=== PATIENT | male | born 1965 | race Caucasian/White ===

== ENCOUNTER → 2019-04-08 | Outpatient (CLI) | payer BC ==
[~2019-04-08] MED LIST: IOHEXOL 240 MG/ML 50ML VIAL. PO ONE; IOHEXOL 300 MG/ML 75 ML VIAL. IV ONE
--- NOTE | 2019-04-08 12:19 | RAD ---
Examination: CT ABD PELV W/ORAL IV CONTRAST History: Newly diagnosed prostate cancer Comparison/Correlation: 04/08/2019 total body bone scan Findings: Axial images of the abdomen and pelvis were obtained following IV and oral contrast administration. The left flank region could not be fully included due to patient body habitus. A small segment of the descending colon in particular was not included. Visualized lung bases are clear. Diffuse fatty infiltration of liver is present. Gallbladder fossa is unremarkable. Spleen has benign calcified granulomas. Adrenal glands are unremarkable. Pancreas is unremarkable. No enlarged abdominal or pelvic lymph nodes. No ascites or pelvic free fluid. Diverticulosis of the colon is present. No enlarged abdominal or pelvic lymph nodes. Urinary bladder is unremarkable. Prostate gland is small in size. Moderate L5/S1 disc space narrowing is present. Vertebral body heights are adequate. Few punctate sclerotic densities involving the left femoral head are present. These probably represent bone islands. Distal abdominal aortic fusiform aneurysm is present measuring up to 3.3 cm diameter. Length of 4.8 cm noted. Impression: Fatty infiltration of the liver. Distal abdominal aortic fusiform aneurysm. Diverticulosis. Punctate sclerotic densities involving left femoral head probably represent bone islands. No definite suspicious bony findings. PQRS Compliance Statement: One or more of the following individualized dose reduction techniques were utilized for this examination: 1. Automated exposure control 2. Adjustment of the mA and/or kV according to patient size 3. Use of iterative reconstruction technique Electronically signed by: El Levine MD (04/08/2019 12:16 PM) [facility]
--- NOTE | 2019-04-08 13:10 | RAD ---
Examination: BONE SCAN WHOLE BODY History: Newly diagnosed prostate cancer Comparison/Correlation: None Findings: 25 mm technetium 99m MDP was intravenously administered for purposes of total-body bone scintigraphy. Uptake of radiotracer involving the visualized head and neck is unremarkable. Uptake at the right acromioclavicular joint region on the posterior projection images is noted and may represent degenerative change. No corresponding suspicious finding at the frontal projection images. Kidneys and urinary bladder are identified. Uptake of radiotracer involving the ribs is unremarkable. Radiotracer overlying the medial thigh regions is noted presumably external to the patient. There are foci of ill-defined mild uptake of radiotracer involving the proximal mid tibial level bilaterally. Uptake of radiotracer the left lateral malleolar region is present presumably representing previous history of trauma. Impression: Nonspecific uptake involving the proximal tibia bilaterally. X-ray exam correlation is recommended. Nonspecific uptake involving the left lateral malleolar region. Correlate with history in determining further evaluation with x-ray examination. No conclusive abnormal radiotracer correlation to suggest metastatic disease. Electronically signed by: El Levine MD (04/08/2019 1:07 PM) [facility]
== END | disposition home or self-care (01) ==
LOC: NM 08:07
PROVIDERS: ATTEND Urology
DX: K76.0 Fatty (change of) liver, not elsewhere classified (principal); K57.90 Diverticulosis of intestine, part unspecified, without perforation or abscess without bleeding; I71.4 Abdominal aortic aneurysm, without rupture; D73.9 Disease of spleen, unspecified; C61 Malignant neoplasm of prostate
CPT/HCPCS: 74177; 78306; A9503; Q9966; Q9967